=== PATIENT | male | born 1985 ===

== ENCOUNTER 2019-01-23 22:58 | Observation (INO) | payer SELFPAY ==
[2019-01-23] MEDS ORDERED: Morphine 10 MG/ML VIAL ONE (23:19)
--- NOTE | 2019-01-23 23:39 | RAD ---
LEFT THUMB THREE VIEWS: 01/23/19 HISTORY: Left thumb swelling. FINDINGS/IMPRESSION: No fracture, dislocation or bony destruction is seen. No soft tissue air or radiopaque foreign body i s identified. POS: OFF
[2019-01-23 23:41] LABS: #Basophils 0.1 thou/uL (0.0-0.2); #Eosinphils 0.4 thou/uL (0.0-0.7); #Lymphocytes 2.1 thou/uL (1.20-3.40); #Monocytes 1.2 thou/uL (0.11-0.59); #Neutrophils 7.1 thou/uL (1.40-6.50); %Basophils 1.3 % (0.0-1.0); %Eosinophils 3.3 % (0.0-10.0); %Lymphocytes 19.5 % (21.0-51.0); %Monocytes 10.8 % (0.0-10.0); %Neutrophils 65.1 % (42.0-75.0); Hemoglobin 14.3 g/dL (14.0-18.0); Mean Corpuscular HGB CONC 33.8 g/dL (32.0-36.0); Mean Corpuscular Hemoglobin 28.6 pg (27.0-31.0); Mean Corpuscular Volume 84.6 fL (78.0-98.0); Mean Platelet Volume 9.8 fL (7.4-10.4); Platelet Count 246 thou/uL (130-400); RBC Distribution Width 11.5 % (11.5-14.5); Red Blood Cell (RBC) Count 5.01 mill/uL (4.70-6.10); White Blood Cell (WBC) Count 10.9 thou/uL (4.8-10.8)
[2019-01-23 23:53] LABS: ALT (SGPT) 38 U/L (8-55); AST (SGOT) 27 U/L (5-34); Albumin 4.7 g/dL (3.5-5.0); Alkaline Phosphatase 102 U/L (40-110); Anion Gap 17 mmol/L (10-20); BUN (Urea Nitrogen) 27 mg/dL (8.9-20.6); Bilirubin, Total 0.4 mg/dL (0.2-1.2); Calc. Creatinine Clearance 0 mL/min (70-130); Calcium 9.9 mg/dL (7.8-10.44); Carbon Dioxide 25 mmol/L (22-29); Chloride 102 mmol/L (98-107); Estimated GFR-MDRD 77; Globulin 3.2 g/dL (2.4-3.5); Glucose 123 mg/dL (70-105); Protein, Total 7.9 g/dL (6.0-8.3); Sodium 140 mmol/L (136-145)
[2019-01-24 01:47] VITALS: BMI 25.9
[2019-01-24] MEDS ORDERED: Ondansetron ODT 4 MG TAB SL PRN (02:10)
[2019-01-24] MEDS ORDERED: Ondansetron PF 4 MG/2 ML Vial IVP PRN (02:10)
[2019-01-24] MEDS ORDERED: Acetaminophen 325 MG TAB PO PRN (02:10)
[2019-01-24] MEDS: Morphine 4 MG/ML VIAL SLOW IVP PRN ×3 (02:28→10:22)
[2019-01-24] MEDS ORDERED: Sodium Chloride 0.9% 1,000 ML IV SCH (06:00)
[2019-01-24] MEDS ORDERED: Vancomycin HCl 1 GM in Premix Bag 1 BAG IVPB SCH ×2 (08:20→11:00)
[2019-01-24] MEDS ORDERED: Lidocaine 1% PF 5 ML VIAL ONE (09:52)
[2019-01-24] MEDS ORDERED: PROPOFOL 200 MG/20 ML VIAL ONE (09:52)
[2019-01-24] MEDS ORDERED: Thrombin 5000 UNITS/5 ML VIAL ONE (13:22)
[2019-01-24] MEDS ORDERED: Sodium Chloride 0.9% 30 ML ONE (13:22)
[2019-01-24] MEDS ORDERED: Bupivacaine PF 0.5% 30 ML VIAL ONE (13:22)
[2019-01-24] MEDS ORDERED: Bacitracin Zinc Ointment 30 gm TUBE ONE (13:22)
[2019-01-24] MEDS ORDERED: Fentanyl 100 MCG/2 ML VIAL ONE (13:32)
[2019-01-24] MEDS ORDERED: Meperidine HCl/PF 25 MG/ML VIAL ONE (14:38)
[2019-01-24] MEDS ORDERED: Morphine 2 MG/ML SYRINGE SLOW IVP PRN (15:26)
[2019-01-24] MEDS: Acetaminophen 325 MG TAB PO PRN (18:08)
[2019-01-24] MEDS: Vancomycin HCl 1.25 GM in Sodium Chloride 0.9% 250 ML 250 ML IVPB SCH (20:02)
[2019-01-24] MEDS ORDERED: FLU VACC QS2019-20(6MOS UP)/PF 60 MCG/0.5 ML SYRINGE IM ONE (21:00)
--- NOTE | 2019-01-24 21:49 | OP ---
DATE OF PROCEDURE: 01/24/2019 PREOPERATIVE DIAGNOSIS: Left thumb abscess. POSTOPERATIVE DIAGNOSIS: Left thumb abscess. FINDINGS: Abscess, with gross mucopurulent green foul-smelling malodorous purulence of 2 mL from the radial thumb distal phalanx, paronychia. PROCEDURE PERFORMED: Incision and drainage of abscess, complex (paronychia), left thumb. ESTIMATED BLOOD LOSS: 10 mL. TOURNIQUET TIME: 14 minutes. DESCRIPTION OF PROCEDURE: After successful general endotracheal anesthesia, limb was prepped and draped. We gave him 20 mL of 0.5% Marcaine block, limb was exsanguinated, tourniquet inflated to 250 mmHg pressure. We then outlined a zigzag incision centered on the mid lateral radial aspect of the thumb, where mucopurulence was opened and medially morales-green material with pus escaped from the center of the incision. We developed a full dermal-epidermal plane, found that much of the mucopurulence came from the pulp space underneath palmar to the distal phalanx, so we dissected down here, debrided this area removing fat with combination of tenotomies and a small Crile/hemostats, debridement was excisional, and went down to include the fat, but not violate tendon of bone, and there was definite infection. We then placed 150 mL into the pulse space, Pulsavac'd 3 L of fluid into the entire area under Pulsavac pressure, antibiotics inside and then packed the area. After we released the tourniquet, obtained hemostasis, with Xeroform 0.25 inch. The patient had left the operating room without evidence of anesthetic or operative complication. Job ID: [id number]
[2019-01-25] MEDS: Vancomycin HCl 1.25 GM in Sodium Chloride 0.9% 250 ML 250 ML IVPB SCH (04:02)
[2019-01-25 07:49] VITALS: BP 136/83; TEMP 97.9
[2019-01-25] MEDS: Acetaminophen 325 MG TAB PO PRN (09:23)
== END 2019-01-25 10:57 | disposition home or self-care (01) ==
LOC: SCSER 22:58 → SURG B 01-24 01:24
PROVIDERS: ADMIT Orthopaedic Surgery Hand Surgery; ATTEND Orthopaedic Surgery Hand Surgery
PROC: 0J9K0ZZ Drainage of Left Hand Subcutaneous Tissue and Fascia, Open Approach (ICD-10-PCS; principal; 2019-01-25)
DX: L02.512 Cutaneous abscess of left hand (principal); L03.012 Cellulitis of left finger; Z87.891 Personal history of nicotine dependence
CPT/HCPCS: 80053; 85025; 85652; 86140; 87040; 87070; 87077; 87186; 87205; 96361; 96365; 96366; 96374; 96375; 96376; G0378; J2001; J2175; J2270; J2704; J3010; J3370; J3490; J7050; S0020